=== PATIENT | male | born 1955 | race Two or more races ===

== ENCOUNTER 2023-09-09 12:37 | Inpatient (IN) | payer SELFPAY ==
[2023-09-09 12:48] VITALS: BMI 27.8
[2023-09-09] MEDS ORDERED: FAMOTIDINE 20 MG/50 ML IVPB 20 MG/50 ML MG IVPB ONE (14:19)
[2023-09-09] MEDS ORDERED: ACETAMINOPHEN 325 MG TABLET (FP) ONE ×2 (14:19→21:46)
[2023-09-09] MEDS ORDERED: MAG HYDROX/AL HYDROX/SIMETH 30 ML UNIT-DOSE CUP ONE (14:19)
[2023-09-09] MEDS: FAMOTIDINE 20 MG/50 ML IVPB 20 MG/50 ML MG IVPB ONE (14:25)
[2023-09-09] MEDS: MAG HYDROX/AL HYDROX/SIMETH 30 ML UNIT-DOSE CUP PO ONE (14:25)
[2023-09-09] MEDS: ACETAMINOPHEN 500 MG TABLET (FP) PO ONE (14:25)
[2023-09-09 14:28] LABS: BASO % 0.6 % (0-2.0); EOS % 1.5 % (0-4.5); HEMATOCRIT 47.6 % (35.4-49); HEMOGLOBIN 16.2 GM/dL (11.7-16.9); LYMPH % 34.4 % (8-40); MCH 33.4 pg (25.7-33.7); MCHC 34.1 g/dl (32.0-35.9); MEAN PLT VOLUME 7.6 fl (7.5-11.1); MONO % 16.8 % (3.8-10.2); NEUT % 46.7 % (42.8-82.8); PLATELET COUNT 227 10^3/uL (134-434); RBC 4.86 M/mm3 (4.00-5.60); RDW 13.3 % (11.9-15.9); WHITE BLOOD COUNT 7.9 K/mm3 (4.0-10.0)
[2023-09-09 14:35] LABS: INR 1.16 (0.83-1.09); PROTHROMBIN TIME (PATIENT) 13.4 SEC (9.7-13.0)
[2023-09-09 14:38] LABS: ACTIVATED PTT 29.3 SECONDS (25.2-36.5)
[2023-09-09 14:54] LABS: CALCIUM 9.1 mg/dL (8.5-10.1)
[2023-09-09 14:55] LABS: ALBUMIN 3.6 g/dl (3.4-5.0); BLOOD UREA NITROGEN 13.6 mg/dL (7-18)
[2023-09-09 15:00] LABS: BILIRUBIN,TOTAL 0.7 mg/dL (0.2-1)
[2023-09-09] MEDS ORDERED: ATORVASTATIN CA 80 MG TABLET (FP) ONE (17:56)
[2023-09-09] MEDS: ATORVASTATIN CA 80 MG TABLET (FP) PO ONE (17:59)
[2023-09-09 18:08] LABS: EPI CELLS 3 /uL (0-25.1); HYALINE CASTS 0 /uL (0-3.1); URINE APPEARANCE CLEAR; URINE BACTERIA 4 /uL (0-1359); URINE BILIRUBIN NEGATIVE (NEGATIVE); URINE COLOR YELLOW; URINE GLUCOSE (UA) NEGATIVE (NEGATIVE); URINE KETONE TRACE (NEGATIVE); URINE LEUK ESTERASE NEGATIVE (NEGATIVE); URINE NITRITE NEGATIVE (NEGATIVE); URINE PROTEIN NEGATIVE (NEGATIVE); URINE RBC 35 /uL (0-23.9); URINE WBC 4 /uL (0-25.8)
[2023-09-09] MEDS: ACETAMINOPHEN 325 MG TABLET (FP) PO ONE (21:48)
[2023-09-10 07:17] VITALS: RESP 18
[2023-09-10 07:18] LABS: BASO % 0.4 % (0-2.0); EOS % 2.3 % (0-4.5); HEMATOCRIT 45.9 % (35.4-49); HEMOGLOBIN 15.5 GM/dL (11.7-16.9); LYMPH % 37.6 % (8-40); MCH 33.4 pg (25.7-33.7); MCHC 33.8 g/dl (32.0-35.9); MEAN CELL VOLUME 98.8 fl (80-96); MEAN PLT VOLUME 7.8 fl (7.5-11.1); MONO % 16.9 % (3.8-10.2); NEUT % 42.8 % (42.8-82.8); PLATELET COUNT 202 10^3/uL (134-434); RBC 4.65 M/mm3 (4.00-5.60); RDW 12.7 % (11.9-15.9); WHITE BLOOD COUNT 6.8 K/mm3 (4.0-10.0)
[2023-09-10 07:34] LABS: INR 1.17 (0.83-1.09); PROTHROMBIN TIME (PATIENT) 13.5 SEC (9.7-13.0)
[2023-09-10 07:36] LABS: ACTIVATED PTT 28.2 SECONDS (25.2-36.5)
[2023-09-10 07:42] LABS: POTASSIUM 4.7 mmol/L (3.5-5.1)
[2023-09-10 07:47] LABS: MAGNESIUM 2.1 mg/dL (1.8-2.4)
[2023-09-10 07:49] LABS: ALBUMIN 3.2 g/dl (3.4-5.0); BLOOD UREA NITROGEN 19.1 mg/dL (7-18); CREATININE 1.1 mg/dL (0.55-1.3)
[2023-09-10 07:51] LABS: TOT PROT 7.1 g/dl (6.4-8.2)
[2023-09-10 07:53] LABS: BILIRUBIN,TOTAL 0.6 mg/dL (0.2-1)
[2023-09-10] MEDS: ENOXAPARIN NA (PORCINE) 40 MG/0.4 ML DISP.SYRIN SQ SCH (09:38)
[2023-09-10 11:45] LABS: N-TERMINAL BNP 25.4 pg/ml (5-125)
[2023-09-11 01:44] VITALS: TEMP 98.1
[2023-09-11 06:56] VITALS: BP 102/67; PULSE 60
[2023-09-11 07:01] LABS: HEMATOCRIT 45.5 % (35.4-49); HEMOGLOBIN 15.5 GM/dL (11.7-16.9); MCH 33.3 pg (25.7-33.7); MEAN PLT VOLUME 7.7 fl (7.5-11.1); PLATELET COUNT 215 10^3/uL (134-434); RBC 4.64 M/mm3 (4.00-5.60); RDW 13.2 % (11.9-15.9); WHITE BLOOD COUNT 7.7 K/mm3 (4.0-10.0)
[2023-09-11 08:02] LABS: POTASSIUM 4.6 mmol/L (3.5-5.1)
[2023-09-11 08:09] LABS: CALCIUM 9.1 mg/dL (8.5-10.1)
[2023-09-11 08:10] LABS: ALBUMIN 3.2 g/dl (3.4-5.0)
[2023-09-11 08:12] LABS: CREATININE 1.1 mg/dL (0.55-1.3)
[2023-09-11 08:14] LABS: BILIRUBIN,TOTAL 0.5 mg/dL (0.2-1); TOT PROT 7.1 g/dl (6.4-8.2)
[2023-09-11] MEDS: CLOPIDOGREL BISULFATE 75 MG TABLET (FP) PO SCH (09:15)
[2023-09-11] MEDS ORDERED: REGADENOSON 0.4 MG/5 ML PRE-FILLED SYRINGE IVPUSH ONE (12:27)
[2023-09-11] MEDS: REGADENOSON 0.4 MG/5 ML PRE-FILLED SYRINGE IVPUSH ONE (12:30)
== END 2023-09-11 14:43 | disposition home or self-care (01) | DRG 197 ==
LOC: JER 12:37 → JERBED 16:36 → INTOOBSV 16:36 → OBSVTOIN 09-10 16:24
PROVIDERS: ADMIT Internal Medicine; ATTEND Nurse Practitioner Family
DX: I71.21 Aneurysm of the ascending aorta, without rupture (principal); J84.10 Pulmonary fibrosis, unspecified; E78.5 Hyperlipidemia, unspecified; J98.11 Atelectasis; K21.9 Gastro-esophageal reflux disease without esophagitis
CPT/HCPCS: 36415; 71046-TC-FY; 71250-TC; 78452-TC; 80048; 80053; 80061; 81003; 83036; 83735; 83880; 84100; 84484; 85025; 85027; 85610; 85730; 86480; 87116; 87206; 87556; 93005; 93010; 93017; 93306-TC; 99285-25; A9502; G0378; J2785